=== PATIENT | male | born 1990 | race Caucasian/White ===

== ENCOUNTER 2020-07-27 11:51 | Emergency (ER) | payer SELFPAY ==
[~2020-07-27] VITALS: Ht 177.8 cm; Wt 99.8 kg
[2020-07-27 11:54] VITALS: BP 135/80
--- NOTE | 2020-07-27 11:54 | NUR ---
Patient ambulated to bed 4. RN evaluating the patient at bedside.
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
--- NOTE | 2020-07-27 12:18 | NUR ---
Dr. Fritz is evaluating the patient at bedside.
[2020-07-27] MEDS: KETOROLAC 30 MG/ML VIAL IM ONE (12:41)
[2020-07-27] MEDS ORDERED: METH750T5 PO ×2 (13:08→13:35)
[2020-07-27] MEDS ORDERED: IBUP-2213 PO ×2 (13:08→13:35)
[2020-07-27 13:28] VITALS: BP 135/80
--- NOTE | 2020-07-27 13:28 | NUR ---
Patient discharged with v/s stable. Written and verbal after care instructions given and explained. Patient alert, oriented and verbalized understanding of instructions. Ambulatory with steady gait. All questions addressed prior to discharge. ID band removed. Patient advised to follow up with PMD. Rx of Ibuprofen and Robaxin given. Work excuse provided until 08/01/23 and limit physical activity until 08/05/20. Copy of work note placed in chart. Patient educated on indication of medication including possible reaction and side effects. Opportunity to ask questions provided and answered.
== END 2020-07-27 13:28 | disposition home or self-care (01) ==
LOC: MED 11:51
DX: M54.5 Low back pain (principal)
CPT/HCPCS: 96372; 99283; J1885

== ENCOUNTER 2021-06-13 13:17 | Emergency (ER) | payer OTHER ==
[~2021-06-13] VITALS: Ht 175.3 cm; Wt 112.0 kg
[~2021-06-13 13:17] MED LIST: IBUP-2213 PO; METH750T5 PO
[2021-06-13 13:23] VITALS: BP 121/60
[2021-06-13] MEDS ORDERED: KETOROLAC 30 MG/ML VIAL IM ONE (14:00)
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
[2021-06-13] MEDS ORDERED: CYCL-711 PO (14:04)
[2021-06-13] MEDS ORDERED: NAPR-54 PO (14:04)
[2021-06-13 14:39] VITALS: BP 122/80
--- NOTE | 2021-06-13 14:41 | NUR ---
Patient discharged with v/s stable. Written and verbal after care instructions given and explained to parent/guardian. Parent/Guardian verbalized understanding. Ambulatorysteady gait. All questions addressed prior to discharge. Advised to follow up with PMD.
== END 2021-06-13 14:40 | disposition home or self-care (01) ==
LOC: MED 13:17
DX: S16.1XXA Strain of muscle, fascia and tendon at neck level, initial encounter (principal); S29.012A Strain of muscle and tendon of back wall of thorax, initial encounter; Z79.899 Other long term (current) drug therapy; V89.2XXA Person injured in unspecified motor-vehicle accident, traffic, initial encounter; Z79.1 Long term (current) use of non-steroidal anti-inflammatories (NSAID); Y93.89 Activity, other specified; Y92.410 Unspecified street and highway as the place of occurrence of the external cause; Y99.8 Other external cause status
CPT/HCPCS: 96372; 99283; J1885